=== PATIENT | male | born 1995 | race Hispanic/Latino ===

== ENCOUNTER 2019-12-21 17:19 | Emergency (ER) | payer OTHER | END 2019-12-21 18:42 | disposition home or self-care (01) | LOC: EDH 17:19 | DX: R42 Dizziness and giddiness (principal); R07.89 Other chest pain; F41.1 Generalized anxiety disorder | CPT/HCPCS: 71046; 93005 ==

== ENCOUNTER 2024-12-04 16:05 | Emergency (ER) | payer BC, OTHER ==
[~2024-12-04] VITALS: Ht 170.2 cm; Wt 115.7 kg
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
[2024-12-04 17:13] LABS: ABG BASE EXCESS 1.7 mmol/L (-2.0-3.0); ABG HCO3 23.7 mmol/L (21.0-28.0); ABG OXYGEN SATURATION 98.6 % (94.0-98.0); ABG PCO2 31 mmHg (35-48); ABG PH 7.503 (7.350-7.450); CARBON MONOXIDE 0.5 % (0.5-1.5); DEVICE COMMENT RR RA; HHb 1.4
[2024-12-04 19:00] LABS: ABG BASE EXCESS 0.4 mmol/L (-2.0-3.0); ABG HCO3 23.8 mmol/L (21.0-28.0); ABG OXYGEN SATURATION 97.5 % (94.0-98.0); ABG PCO2 35 mmHg (35-48); ABG PH 7.451 (7.350-7.450); DEVICE COMMENT RR RN; PO2, ARTERIAL BG 92.8 mmHg (83.0-108.0); VENT MODE, BG RA (ROOM AIR)
[2024-12-04 19:03] LABS: ABG BASE EXCESS -0.1 mmol/L (-2.0-3.0); ABG HCO3 23.1 mmol/L (21.0-28.0); ABG OXYGEN SATURATION 97.6 % (94.0-98.0); ABG PCO2 34 mmHg (35-48); ABG PH 7.449 (7.350-7.450); CARBON MONOXIDE 0.3 % (0.5-1.5); DEVICE COMMENT RR RN; HHb 2.4; VENT MODE, BG RA (ROOM AIR)
[2024-12-04 19:34] VITALS: BP 135/75; PULSE 82; RESP 16; TEMP 98.4; O2SAT 98
== END 2024-12-04 19:39 | disposition home or self-care (01) ==
LOC: EDH 16:05
DX: T59.811A Toxic effect of smoke, accidental (unintentional), initial encounter (principal); E11.9 Type 2 diabetes mellitus without complications; Z87.891 Personal history of nicotine dependence; Y92.89 Other specified places as the place of occurrence of the external cause
CPT/HCPCS: 36415; 36600; 71045; 82375; 82435; 82803; 82947; 83605; 84132; 84295; 85018; 99283